=== PATIENT | female | born 1985 | race Caucasian/White ===

== ENCOUNTER 2017-04-19 11:33 | Emergency (ER) | payer MEDICAID ==
[2017-04-19] MEDS ORDERED: Sodium Chloride 0.9% 1,000 ML IV ONE ×2 (12:36→15:13)
[2017-04-19] MEDS ORDERED: Ondansetron 4 MG/2 ML SDV IVPUSH ONE (12:37)
[2017-04-19] MEDS ORDERED: HYDROmorphone 2 MG/ML SDV IVPUSH ONE (12:37)
[2017-04-19 15:27] VITALS: BP 92/51
--- NOTE | 2017-04-19 15:54 | CT ---
INDICATION: Question right renal calculus. Question appendicitis. CT ABDOMEN AND PELVIS WITHOUT CONTRAST: Spiral 1.25-mm axial sections were obtained through the abdomen and pelvis without contrast utilizing renal calculus protocol, which includes sagittal and coronal reconstructions, 2017. No comparison studies were available. Total Exam DLP = 1357.24 mGy-cm. The lower lung rouse and pleural spaces visualized appeared normal. The appendix appeared normal and is well visualized on coronal images #47 through #50. (The appendix was normal in caliber. There was some amorphous appearing increased density material within it, which could represent medication density. A definite appendicolith was not seen - no periappendiceal inflammation was seen - no enlargement of the appendix was seen.) The appendix was also visualized on axial images #234 through #252. The kidneys showed no evidence of calculi, definite mass lesions, or obstructive uropathy. No ureteral calculus was suggested. No bladder calculus was suggested. The ovaries were roughly similar in appearance, allowing for anatomic variation. No definite mass lesions, organomegaly, or free fluid collections could be identified in the abdomen or pelvis. No calculi were demonstrated in the gallbladder. No focal liver abnormality was seen. The liver, spleen, pancreas, and adrenal glands were unremarkable. The common bile duct was not enlarged. No retroperitoneal mass was seen. No evidence of bowel obstruction or free air was seen. A few phleboliths are noted in the pelvis. No evidence of a hernia was identified. No specific abnormality to determine the patient's right-sided pain was identified. If gallbladder abnormality is suspected clinically, ultrasound of the gallbladder may be helpful. Cannot exclude the possibility of pyelonephritis without IV contrast. IMPRESSION: Normal CT of the abdomen and pelvis with renal calculus protocol. No specific abnormality to suggest an etiology for the patient's right-sided pain could be identified. If gallbladder is a possibility clinically, ultrasound of the gallbladder may be helpful. CT PELVIS: Examination of the pelvis was obtained by CT, as noted above, and revealed no evidence of hernia, mass lesions, organomegaly, or free fluid collections. No evidence of bowel obstruction or free air was seen. The appendix appeared normal. Report was given in person to Dr. Ferguson at approximately 1320 hours, 2017. [facility]OSPITALGeovanni
--- NOTE | 2017-04-21 12:02 | ER ---
DATE SEEN: 04/19/2017 TIME SEEN: The patient was seen at 1210 hours. CHIEF COMPLAINT: Sudden onset of severe abdominal pain at 1000 hours. She awoke from rest. 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 8 /10 abdominal discomfort. Last menstrual period was 3 weeks ago. 7, para 5-2-0-0-5 with tubal ligation. No fever. No chills. No sore throat. No cough. No sinus congestion. No shortness of breath. She has experienced 1 episode of vomiting and 1 episode of diarrhea. This is a new pain. Has never experienced this before. No history of kidney stones. She has mild right flank discomfort and right lower quadrant discomfort. SOCIAL HISTORY: History of being a smoker. The patient is . is here with her. 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 ALLERGIES: Penicillin, Cleocin, and Cipro. PAST MEDICAL HISTORY: History of migraines. History of low back pain. REVIEW OF SYSTEMS: HEENT: Negative. No sinusitis, history of sore throat, sinus pressure, or headache. CARDIORESPIRATORY: Denies shortness of breath or cough or chest pain. GI: Denies GERD, blood in her stool, or melena. : Denies frequency, urgency, or dysuria. No previous history of kidney stones. MUSCULOSKELETAL: Denies joint or muscle aches. PHYSICAL EXAMINATION: VITAL SIGNS: Weight is 180 pounds. Blood pressure 122/74. 100% oxygen saturation. Heart rate 74. Temperature is 98.3. The patient is mildly overweight, 85.275 kg today. Ten days ago, she was 91.6 kg. CONSTITUTIONAL: The patient is well dressed and good hygiene. She is lying on her side, left side, in a position with mild discomfort in right lower quadrant. This pain is 8/10 in intensity. Sitting next to her is her . HEENT: Pharynx without erythema. No cervical adenopathy. No sinus pressure or tenderness. TMs, normal in appearance. NECK: Supple. No thyromegaly or masses. No cervical adenopathy. LUNGS: Clear without rales, rhonchi, or wheezes. HEART: S1, S2. No irregular rate and rhythm. ABDOMEN: Soft with moderate lower quadrant guarding. Mild rebound. Moderate right CVA percussion tenderness. DIAGNOSIS: UTI /[id number] AMNA/CHRISTO MERAZ
--- NOTE | 2017-04-21 12:22 | ER ---
DATE SEEN: 04/19/2017 TIME SEEN: The patient was seen at 1210 hours. HISTORY OF PRESENT ILLNESS: This 31-year-old woman, who smokes, 7, para 5-2-0-5, tubal ligation status, last menstrual period three weeks ago, comes in with a history of abdominal pain. It is lower abdominal pain. The patient works at the [employer] and worked last night. No unusual activity. She has not fallen or hurt herself. She denies frequency, urgency, or dysuria. No history of renal stones. No vomiting. No fever. No chills. She had diarrhea x1. She is status post previous appendectomy. MEDICATIONS: None. ALLERGIES: Ciprofloxacin, clindamycin, and penicillin. REVIEW OF SYSTEMS: Negative, except as noted above. HEENT: Denies headache, neck stiffness, shortness of breath, sore throat, sinus congestion. Denies difficulty swallowing. ENDOCRINE: Denies thyroid abnormality. Denies being too hot or too cold. CARDIORESPIRATORY: Denies shortness of breath or cough, recent rhinorrhea, or flu-like symptoms. No chest pain or irregular heartbeat. GI: See note above. No hematochezia history. : 7, para 5-2-0-5. Last menstrual period 3 weeks ago. No unusual menstrual flow. MUSCULOSKELETAL: Negative. Denies arthritis or joint pain. NEUROLOGICAL: Denies weakness, paresis, or seizures. PSYCHIATRIC: Negative. Denies depression. PHYSICAL EXAMINATION: VITAL SIGNS: Blood pressure 122/74, heart rate 74 and regular, respirations 18, oxygen saturation 100%, temperature 36.8 degrees centigrade. GENERAL: The patient is lying in the position on her left side. Her is with her sitting nearby, reading a text. She is in marked pain. The pain is 8/10 in intensity. HEENT: Pharynx without abnormality. Mucosa slightly moist. TMs negative. NECK: No thyromegaly. No masses in neck. No cervical adenopathy. No bruits. HEART: S1, S2. No irregularities of rhythm. LUNGS: Clear without rales, rhonchi, or wheezes. ABDOMEN: Soft with moderate guarding. There is pain in the right flank. There is also right lower quadrant discomfort. Generalized right upper quadrant discomfort. No rebound with moderate guarding. No CVA percussion tenderness. No heel tap rebound. PELVIC: Not performed. LOWER EXTREMITIES: Deep tendon reflexes are normal in upper and lower extremities. NEUROLOGICAL: Cranial nerves 2 through 12 intact. Gait intact. Strength intact. Sensation intact. WORKING DIAGNOSES: 1. Rule out kidney stone. 2. Rule out appendicitis (she has had previous appendectomy so not likely). 3. Rule out partial bowel obstruction. 4. Rule out colitis. 5. Rule out ovarian cyst or torsion. 6. Rule out uterine mass or tumor. A CAT scan does not reveal any abnormality of the bowel. No evidence for bowel obstruction. No evidence for air-fluid levels. No evidence for renal stones. Ovaries are roughly similar in appearance, slightly enlarged but not abnormal, no suggestion of torsion on the basis of just clinical exam and also the CT. No retroperitoneal mass, bile duct was not enlarged. No evidence for hernia. Her gallbladder is present. There are no abnormalities noted. LABORATORY DATA: White count normal at 8,300, PMNs 68, lymphocytes 19, monos 7, 6 eosinophils (eosinophilia). Complete metabolic panel is normal, see chart, except for AST 27, ALT of 49, albumin 3.4, bilirubin 0.3. Urinalysis, positive nitrite, moderate leukocyte esterase, 5-10 wbc's, many bacteria. Urine HCG was negative. ASSESSMENT: Cystitis and urinary tract infection, causing the patient severe lower abdominal pain. She received Dilaudid and Zofran. The pain is 50% to 70% resolved before dismissal. She was started on medicine. She has multiple allergies, consequently placed on cefepime 250 mg b.i.d., cefuroxime 250 mg b.i.d. for 5 days. If she is not getting better, she should see a doctor in 24 hours. OTHER DIAGNOSES: Multip, tubal ligation, dehydration. /[id number] AMNA/YONIL
--- NOTE | 2017-04-23 13:18 | ER ---
DATE SEEN: 04/19/2017 Urinary tract infection, greater than 100,000 colonies of E. coli, it is sensitive to cephalosporins. The patient is on cefuroxime 250 mg b.i.d. for 5 days. This should be satisfactory for her.. At the end of the day, the patient was called to tell her that we used the right medicine, and she told me she was better. /[id number] AMNA/CHRISTO MERAZ
== END 2017-04-19 16:43 | disposition home or self-care (01) ==
LOC: FB.ED 11:33
DX: N30.90 Cystitis, unspecified without hematuria (principal); E86.0 Dehydration; Z88.1 Allergy status to other antibiotic agents; Z88.0 Allergy status to penicillin; Z98.51 Tubal ligation status
CPT/HCPCS: 36415; 74176; 80053; 81001; 81025; 83605; 85025; 87086; 87088; 87186; 96361; 96374; 96375; 99284; J1170; J2405; J7040; J7030

== ENCOUNTER 2017-11-16 13:32 | Emergency (ER) | payer OTHER, MEDICAID ==
--- NOTE | 2017-11-16 14:01 | EDM.PDOC ---
ED HPI GENERAL MEDICAL PROBLEM - General Chief Complaint: Neurological Problem Stated Complaint: SEIZURES Time Seen by Provider: 11/16/17 13:40 Source of Information: Reports: Patient, Family History Limitations: Reports: Altered Mental Status - History of Present Illness INITIAL COMMENTS - FREE TEXT/NARRATIVE: Fatuma comes into [facility] ED by EMS following a number of generalized seizures while at the [employer]. Episodes began about 11:00 am preceded by sxs of frontal and facial pressure, followed by progressive shaking of UEs and LEs, followed by a brief LOC lasting less than 30 seconds associated with clonic movements and noisy respirations. Recovery occurred quickly. Her spouse arrived after the first 3 episodes, and witnessed the following 5 episodes of similar nature. EMS arrived 40 minutes after the first episode, GCS 14, with no recurrence during transport. Upon arrival to the ED, she was awake, some latency to response but all simple questions were correct, with movement of all extremities purposefully. She denies headache, chest pain or SOB. She reportedly had 3 seizures about 15 mos ago, and was seen at [facility] for a medical assessment, but could not recall tests performed. There was no medical follow up. Back Pain Score (Numeric/FACES): 7 - Related Data Allergies Allergy/AdvReac Type Severity Reaction Status Date / Time ciprofloxacin [From Cipro] Allergy Rash Verified 11/16/17 13:57 ciprofloxacin HCl Allergy Rash Verified 11/16/17 13:57 [From Cipro] clindamycin Allergy Rash Verified 11/16/17 13:57 Penicillins Allergy Cannot Verified 11/16/17 13:57 Remember Home Meds: Home Meds NK [No Known Home Meds] 04/19/17 [History] Past Medical History [employer] History: Reports: Other [employer] History: Neurological History: Reports: Seizure - Past Surgical History Female Surgical History: Reports: Tubal Ligation Social & Family History - Family History Family Medical History: Noncontributory - Caffeine Use Caffeine Use: Reports: None ED ROS GENERAL - Review of Systems Review Of Systems: See Below Constitutional: Reports: No Symptoms HEENT: Reports: No Symptoms Respiratory: Reports: No Symptoms Cardiovascular: Reports: No Symptoms Endocrine: Reports: No Symptoms GI/Abdominal: Reports: No Symptoms : Reports: No Symptoms Musculoskeletal: Reports: Arm Pain, Back Pain, Leg Pain Skin: Reports: No Symptoms Neurological: Reports: Confusion, Seizure Psychiatric: Reports: No Symptoms Hematologic/Lymphatic: Reports: No Symptoms Immunologic: Reports: No Symptoms - Physical Exam Exam: See Below Exam Limited By: Other (some latency of response that is clearing) General Appearance: WD/WN, No Apparent Distress, Obese Eye Exam: Bilateral Eye: EOMI, Normal Inspection, PERRL Ears: Normal External Exam Nose: Normal Inspection Throat/Mouth: Normal Inspection, Normal Oropharynx, Normal Voice, No Airway Compromise Head Exam: Normocephalic Neck: Normal Inspection, Supple, Non-Tender, Full Range of Motion Respiratory/Chest: No Respiratory Distress, Lungs Clear, Normal Breath Sounds, No Accessory Muscle Use Cardiovascular: Regular Rate, Rhythm, No Murmur GI/Abdominal: Normal Bowel Sounds, Soft, Non-Tender, No Organomegaly, No Distention, No Mass Neuro Exam (Abbreviated): Alert, Oriented, CN II-XII Intact, No Motor/Sensory Deficits, Slow to Respond Back Exam: Normal Inspection, Other (back pain) Extremities: Normal Inspection, Arm Pain, Leg Pain Psychiatric: Flat Affect, Tearful Skin Exam: Warm, Dry, Intact, Normal Color, No Rash Course - Vital Signs Text/Narrative:: Following assessment at the [facility] ED, IV site maintained and Ativan vial available for seizure management in needed. 02 sats 99% on RA, VSS, 12 lead ekg noted NSR. The Head CT non contrast was normal by diagnostic imaging. CBC, CMP, drug screen: all baseline. I discussed case with hospitalist who recommended transfer to [facility], and she was accepted by Dr Argueta, hospitalist. Last Recorded V/S: Last Vital Signs Temp 36.6 C 11/16/17 13:59 Pulse 67 11/16/17 13:59 Resp 17 11/16/17 13:59 BP 107/68 11/16/17 13:59 Pulse Ox 97 11/16/17 13:59 - Orders/Labs/Meds Orders: Active Orders 24 hr Category Date Time Status Head wo Cont [CT] Stat Exams 11/16/17 13:47 Taken CULTURE URINE [RM] Stat Lab 11/16/17 14:50 Ordered EKG 12 Lead [EK] Routine Ther 11/16/17 13:48 Ordered Labs: Laboratory Tests 11/16/17 11/16/17 11/16/17 Range/Units 14:00 14:00 14:00 WBC 11.6 (4.5-12.0) X10-3/uL RBC 4.56 (3.23-5.20) x10(6)uL Hgb 13.2 (11.5-15.5) g/dL Hct 38.4 (30.0-51.3) % MCV 84.2 (80-96) fL MCH 28.8 (27.7-33.6) pg MCHC 34.3 (32.2-35.4) g/dL RDW 13.7 (11.5-15.5) % Plt Count 258 (125-369) X10(3)uL MPV 9.2 (7.4-10.4) fL Neut % (Auto) 72.4 (46-82) % Lymph % (Auto) 17.5 (13-37) % Armstrong % (Auto) 4.9 (4-12) % Eos % (Auto) 5 (1.0-5.0) % Baso % (Auto) 1 (0-2) % Neut # (Auto) 8.4 H (1.6-8.3) # Lymph # (Auto) 2.0 (0.6-5.0) # Armstrong # (Auto) 0.6 (0.0-1.3) # Eos # (Auto) 0.5 (0.0-0.8) # Baso # (Auto) 0.1 (0.0-0.2) # Sodium 139 (135-145) mmol/L Potassium 3.5 (3.5-5.3) mmol/L Chloride 104 (100-110) mmol/L Carbon Dioxide 26 (21-32) mmol/L BUN 9 (7-18) mg/dL Creatinine 0.8 (0.55-1.02) mg/dL Est Cr Clr Drug Dosing TNP Estimated GFR (MDRD) > 60 (>60) BUN/Creatinine Ratio 11.3 (9-20) Glucose 110 (80-116) mg/dL Calcium 8.8 (8.6-10.2) mg/dL Total Bilirubin 0.2 (0.1-1.3) mg/dL AST 5 D (5-25) IU/L ALT 32 D (12-36) U/L Alkaline Phosphatase 83 (56-112) IU/L Total Protein 7.7 (6.0-8.0) g/dL Albumin 3.4 L (3.5-5.2) g/dL Globulin 4.3 g/dL Albumin/Globulin Ratio 0.8 Urine Color (YELLOW) Urine Appearance (CLEAR) Urine pH (5.0-6.5) Ur Specific Willis (1.010-1.025) Urine Protein (NEGATIVE) mg/dL Urine Glucose (UA) (NEGATIVE) mg/dL Urine Ketones (NEGATIVE) mg/dL Urine Occult Blood (NEGATIVE) Urine Nitrite (NEGATIVE) Urine Bilirubin (NEGATIVE) Urine Urobilinogen (NEGATIVE) mg/dL Ur Leukocyte Esterase (NEGATIVE) Urine RBC (0) Urine WBC (0) Ur Squamous Epith Cells (NS,R,O) Urine Bacteria (NS) Urine Mucus (NS) Urine Opiates Screen (NEGATIVE) Ur Oxycodone Screen (NEGATIVE) Ur Propoxyphene Screen (NEGATIVE) Ur Barbituates Screen (NEGATIVE) Ur Tricyclics Screen (NEGATIVE) Ur Phencyclidine Scrn (NEGATIVE) Ur Amphetamine Screen (NEGATIVE) Urine MDMA Screen (NEGATIVE) U Benzodiazepines Scrn (NEGATIVE) U Cocaine Metab Screen (NEGATIVE) U Marijuana (THC) Screen (NEGATIVE) Ethyl Alcohol < 0.03 (<0.03) % 11/16/17 11/16/17 Range/Units 14:30 14:30 WBC (4.5-12.0) X10-3/uL RBC (3.23-5.20) x10(6)uL Hgb (11.5-15.5) g/dL Hct (30.0-51.3) % MCV (80-96) fL MCH (27.7-33.6) pg MCHC (32.2-35.4) g/dL RDW (11.5-15.5) % Plt Count (125-369) X10(3)uL MPV (7.4-10.4) fL Neut % (Auto) (46-82) % Lymph % (Auto) (13-37) % Armstrong % (Auto) (4-12) % Eos % (Auto) (1.0-5.0) % Baso % (Auto) (0-2) % Neut # (Auto) (1.6-8.3) # Lymph # (Auto) (0.6-5.0) # Armstrong # (Auto) (0.0-1.3) # Eos # (Auto) (0.0-0.8) # Baso # (Auto) (0.0-0.2) # Sodium (135-145) mmol/L Potassium (3.5-5.3) mmol/L Chloride (100-110) mmol/L Carbon Dioxide (21-32) mmol/L BUN (7-18) mg/dL Creatinine (0.55-1.02) mg/dL Est Cr Clr Drug Dosing Estimated GFR (MDRD) (>60) BUN/Creatinine Ratio (9-20) Glucose (80-116) mg/dL Calcium (8.6-10.2) mg/dL Total Bilirubin (0.1-1.3) mg/dL AST (5-25) IU/L ALT (12-36) U/L Alkaline Phosphatase (56-112) IU/L Total Protein (6.0-8.0) g/dL Albumin (3.5-5.2) g/dL Globulin g/dL Albumin/Globulin Ratio Urine Color Yellow (YELLOW) Urine Appearance Cloudy (CLEAR) Urine pH 7.0 H (5.0-6.5) Ur Specific Willis 1.010 (1.010-1.025) Urine Protein Negative (NEGATIVE) mg/dL Urine Glucose (UA) Normal (NEGATIVE) mg/dL Urine Ketones Negative (NEGATIVE) mg/dL Urine Occult Blood Negative (NEGATIVE) Urine Nitrite Positive H (NEGATIVE) Urine Bilirubin Negative (NEGATIVE) Urine Urobilinogen Normal (NEGATIVE) mg/dL Ur Leukocyte Esterase Small H (NEGATIVE) Urine RBC 0-5 (0) Urine WBC 0-5 (0) Ur Squamous Epith Cells Many H (NS,R,O) Urine Bacteria Many H (NS) Urine Mucus Few H (NS) Urine Opiates Screen Negative (NEGATIVE) Ur Oxycodone Screen Negative (NEGATIVE) Ur Propoxyphene Screen Negative (NEGATIVE) Ur Barbituates Screen Negative (NEGATIVE) Ur Tricyclics Screen Negative (NEGATIVE) Ur Phencyclidine Scrn Negative (NEGATIVE) Ur Amphetamine Screen Negative (NEGATIVE) Urine MDMA Screen Negative (NEGATIVE) U Benzodiazepines Scrn Negative (NEGATIVE) U Cocaine Metab Screen Negative (NEGATIVE) U Marijuana (THC) Screen Negative (NEGATIVE) Ethyl Alcohol (<0.03) % Departure - Departure Time of Disposition: 15:14 Disposition: DC/Tfer to Other 70 Condition: Fair Clinical Impression: Seizure-like activity - Discharge Information *PRESCRIPTION DRUG MONITORING PROGRAM REVIEWED*: Not Applicable *COPY OF PRESCRIPTION DRUG MONITORING REPORT IN PATIENT AIELEN: Not Applicable Forms: ED Department Discharge - Problem List & Annotations (1) Seizure-like activity SNOMED Code(s): 022271864 Code(s): R56.9 - UNSPECIFIED CONVULSIONS Status: Acute Current Visit: Yes Annotation/Comment:: Transfer to [facility] for neurologic assessment. - Problem List Review Problem List Initiated/Reviewed/Updated: Yes - My Orders Last 24 Hours: My Active Orders 11/16/17 13:47 Head wo Cont [CT] Stat 11/16/17 13:48 EKG 12 Lead [EK] Routine 11/16/17 14:50 CULTURE URINE [RM] Stat - Assessment/Plan Last 24 Hours: My Active Orders 11/16/17 13:47 Head wo Cont [CT] Stat 11/16/17 13:48 EKG 12 Lead [EK] Routine 11/16/17 14:50 CULTURE URINE [RM] Stat Plan: Follow up with PCP.
[2017-11-16 15:32] VITALS: BP 110/73
--- NOTE | 2017-11-17 08:20 | CT ---
INDICATION: Unwitnessed falls, recent episode of confusion, seizures, 8 seizures in the last hour. CT HEAD WITHOUT CONTRAST: Serial contiguous 2.5 and 5 mm sections were obtained through the brain without contrast, 11/16/2017. No comparisons were available at the time of dictation. Total exam DLP = 950.31 mGy-cm. No shift of midline structures, ventricular abnormalities, or abnormal areas of density were identified. No bleeding site or hematoma was seen. Visualized paranasal sinuses and mastoid air cells were well-aerated. No cranial abnormality was identified. There is mild asymmetry of the lateral ventricles, which is felt to be a normal variant. IMPRESSION: Normal CT brain without contrast. Report was called to Dr. Tlaley at 1432 hours on 11/16/2017. MARÍAD
== END 2017-11-16 16:05 | disposition other institution (70) ==
LOC: FB.ED 13:32
DX: R56.9 Unspecified convulsions (principal); Z88.0 Allergy status to penicillin; Z88.1 Allergy status to other antibiotic agents
CPT/HCPCS: 36415; 70450; 80053; 80305; 81001; 85025; 87086; 87088; 87186; 93005; 99285; G0480